=== PATIENT | male | born 1995 | race Two or more races ===

== ENCOUNTER 2018-04-30 02:00 | Emergency (ER) | payer MEDICAID ==
[~2018-04-30] VITALS: Ht 177.8 cm; Wt 50.0 kg
[2018-04-30 03:27] LABS: BASOPHILS # (AUTO) 0.1 X10'3 (0-0.2); BASOPHILS % (AUTO) 0.5 % (0-1); EOSINOPHILS # (AUTO) 0.3 X10'3 (0-0.9); EOSINOPHILS % (AUTO) 2.6 % (0-6); HEMATOCRIT 44.1 % (42.0-52.0); HEMOGLOBIN 15.3 g/dl (14.0-17.9); LYMPHOCYTES # (AUTO) 0.8 X10'3 (1.1-4.8); MEAN CORPUSCULAR HEMOGLOBIN 31.2 PG (27.0-31.0); MEAN CORPUSCULAR HGB CONC 34.6 % (33.0-36.5); MEAN CORPUSCULAR VOLUME 90.1 FL (78-98); MEAN PLATELET VOLUME 10.3 FL (7.4-10.4); MONOCYTES # (AUTO) 0.6 X10'3 (0-0.9); MONOCYTES % (AUTO) 5.1 % (2-12); NEUTROPHILS # (AUTO) 9.7 X10'3 (1.8-7.7); NEUTROPHILS % (AUTO) 84.8 % (42-75); PLATELET COUNT 195 X10'3 (140-440); RED CELL DISTRIBUTION WIDTH 11.7 % (11.5-14.5); WHITE BLOOD COUNT 11.5 X10'3 (4.5-11.0)
[2018-04-30 03:34] LABS: ALANINE AMINOTRANSFERASE 27 U/L (12-78); ALBUMIN 4.3 G/DL (3.4-5.0); ALBUMIN/GLOBULIN RATIO 1.3 (1.1-1.5); ALKALINE PHOSPHATASE 76 IU/L (46-116); ANION GAP 12 (8-16); ASPARTATE AMINO TRANSFERASE 19 U/L (10-37); BILIRUBIN,TOTAL 0.4 MG/DL (0.1-1.0); BLOOD UREA NITROGEN 12 MG/DL (7-18); BUN/CREATININE RATIO 13.6 (5.4-32.0); CALCIUM 8.8 MG/DL (8.5-10.1); CHLORIDE 104 MMOL/L (99-107); CREATININE 0.88 MG/DL (0.60-1.10); GLUCOSE 123 MG/DL (70-104); POTASSIUM 3.3 MMOL/L (3.5-5.1); SODIUM 142 MMOL/L (135-145); TOTAL CARBON DIOXIDE 25.7 MMOL/L (24-32); TOTAL PROTEIN 7.7 G/DL (6.4-8.2); eGFR > 90 ML/MIN
[2018-04-30] MEDS ORDERED: dexamethasone sod phosphate 10mg/ml inj IV STA (04:43)
[2018-04-30] MEDS ORDERED: albuterol 2.5 MG/3 ML nebule CONTNEB PRN (04:45)
[2018-04-30] MEDS ORDERED: albuterol 2.5 mg/0.5ml nebule NEB ONE (05:10)
[2018-04-30] MEDS ORDERED: ALB0.5UD IH (05:31)
[2018-04-30] MEDS ORDERED: ALBU8HFA PO (05:31)
[2018-04-30] MEDS ORDERED: PRED20TA PO (05:31)
[2018-04-30 05:32] VITALS: BP 130/82
[2018-04-30] MEDS ORDERED: potassium Cl 20 mEq SR tablet PO STA (05:33)
== END 2018-04-30 05:51 | disposition home or self-care (01) ==
LOC: ER 02:00
DX: J20.9 Acute bronchitis, unspecified (principal); J45.901 Unspecified asthma with (acute) exacerbation; E87.6 Hypokalemia; F17.200 Nicotine dependence, unspecified, uncomplicated
CPT/HCPCS: 36415; 71045; 80053; 85025; 93005; 94640; 94760; 96374; 99285; J1100; J7611